=== PATIENT | male | born 1995 | race African-American/Black ===

== ENCOUNTER 2017-08-04 19:20 | Emergency (ER) | payer SELFPAY ==
[2017-08-04] MEDS ORDERED: HYDROCODONE/APAP 10/325 TAB ONE (20:16)
[2017-08-04] MEDS ORDERED: TETANUS & DIPHTHERIA TOX,ADULT 0.5 ML VIAL ONE (20:17)
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
== END 2017-08-04 21:48 | disposition home or self-care (01) ==
LOC: ER 19:20
DX: S60.512A Abrasion of left hand, initial encounter (principal); S60.511A Abrasion of right hand, initial encounter; S40.212A Abrasion of left shoulder, initial encounter; S50.812A Abrasion of left forearm, initial encounter; F17.200 Nicotine dependence, unspecified, uncomplicated; V29.40XA Motorcycle driver injured in collision with unspecified motor vehicles in traffic accident, initial encounter; Y93.89 Activity, other specified; Y92.9 Unspecified place or not applicable; Y99.9 Unspecified external cause status
CPT/HCPCS: 71045; 90714; 99285